=== PATIENT | female | born 1975 | race Caucasian/White ===

== ENCOUNTER 2017-04-26 13:40 | Emergency (ER) | payer MEDICAID ==
[~2017-04-26] VITALS: Ht 165.1 cm; Wt 77.0 kg
[2017-04-26 15:03] LABS: HCG SCREEN NEGATIVE
[2017-04-26] MEDS ORDERED: TRAMADOL 50MG TABLET PO ONE (16:00)
[2017-04-26] MEDS ORDERED: SODIUM CHLORIDE 0.9% 1,000 ML IV ONE (16:15)
[2017-04-26] MEDS ORDERED: HYDROCODONE/ACETAMINOPHEN 5/325MG TABLET PO ONE (16:45)
[2017-04-26 18:10] VITALS: BP 122/88
== END 2017-04-26 18:20 | disposition home or self-care (01) ==
LOC: ER 14:07
DX: M54.9 Dorsalgia, unspecified (principal); C34.90 Malignant neoplasm of unspecified part of unspecified bronchus or lung; R20.9 Unspecified disturbances of skin sensation; J45.909 Unspecified asthma, uncomplicated; W19.XXXA Unspecified fall, initial encounter; Y93.89 Activity, other specified; Y92.89 Other specified places as the place of occurrence of the external cause; Y99.8 Other external cause status
CPT/HCPCS: 70450; 72100; 72125; 84703; 96360; 99285; J7030; Z7610